=== PATIENT | male | born 2000 | race Caucasian/White ===

== ENCOUNTER 2021-06-18 15:55 | Emergency (ER) | payer SELFPAY ==
[~2021-06-18] VITALS: Ht 180.3 cm; Wt 104.8 kg
[2021-06-18 16:23] VITALS: BP 139/73
[2021-06-18] MEDS ORDERED: NACL 0.9% 1,000 ML IV ONE (16:30)
[2021-06-18] MEDS ORDERED: MORPHINE SULFATE 2 MG/ML SYR IVP ONE (16:30)
[2021-06-18] MEDS ORDERED: ONDANSETRON 4 MG/2 ML VIAL IVP ONE (16:30)
--- NOTE | 2021-06-18 16:45 | NUR ---
Pt moved to bed 6.
[2021-06-18 16:51] LABS: BASOPHILS % (AUTO) 0.2 % (0.0-2.0); EOSINOPHILS # (AUTO) 0.1 K/uL (0-0.4); EOSINOPHILS % (AUTO) 0.7 % (0.0-4.0); HEMATOCRIT 45.5 % (36-52); HEMOGLOBIN 15.7 g/dL (12.0-18.0); LYMPHOCYTES # (AUTO) 0.6 K/uL (2.0-11.5); LYMPHOCYTES % (AUTO) 7.7 % (20.5-51.1); MEAN CORPUSCULAR HEMOGLOBIN 31 pg (27-31); MEAN CORPUSCULAR HGB CONC 34 g/dL (33-37); MEAN CORPUSCULAR VOLUME 90.5 fL (80-94); MONOCYTES # (AUTO) 0.7 K/uL (0.8-1.0); MONOCYTES % (AUTO) 8.9 % (1.7-9.3); NEUTROPHILS # (AUTO) 6.3 K/uL (1.8-7.7); NEUTROPHILS % (AUTO) 82.5 % (42.2-75.2); PLATELET COUNT (AUTO) 188 K/uL (140-450); RED BLOOD CELL COUNT(AUTO) 5.03 MIL/uL (4.20-6.10); RED CELL DISTRIBUTION WIDTH 13.1 % (11.6-13.7); WHITE BLOOD COUNT (AUTO) 7.7 K/uL (4.8-10.8)
[2021-06-18 16:51] LABS: APPEARANCE,URINE CLEAR (CLEAR); BILIRUBIN,URINE NEGATIVE (NEGATIVE); BLOOD, URINE 3+ (NEGATIVE); COLOR,URINE DARK YELLOW (YELLOW); LEUKOCYTE ESTERASE ,URINE NEGATIVE (NEGATIVE); NITRITE, URINE NEGATIVE (NEGATIVE); UGLUCOSE NEGATIVE (NEGATIVE)
--- NOTE | 2021-06-18 17:02 | NUR ---
see complete assessment
[2021-06-18 17:06] LABS: ALBUMIN 4.5 g/dL (3.4-5.0); ANION GAP 13.3 (8-16); CARBON DIOXIDE 28.3 mmol/L (21-32); CREATININE 1.1 mg/dL (0.6-1.3); POTASSIUM 3.6 mmol/L (3.5-5.1); TOTAL BILIRUBIN 0.8 mg/dL (0.0-1.0)
[2021-06-18 17:57] LABS: WBC,URINE 0-5 /HPF (0-5)
--- NOTE | 2021-06-18 18:05 | NUR ---
Patient taken to CT scan via wheelchair by tech.
--- NOTE | 2021-06-18 18:19 | NUR ---
Eric returned from CT scan.
--- NOTE | 2021-06-18 19:14 | NUR ---
Pt report given to AN RN. Transfer of care at this time.
--- NOTE | 2021-06-18 19:15 | NUR ---
Received report from RAMON Moore for continuity of care.
--- NOTE | 2021-06-18 19:15 | NUR ---
Received report from RAMON Moore for continuity of care.
--- NOTE | 2021-06-18 20:01 | NUR ---
ULTRASOUND AT BEDSIDE
[2021-06-18] MEDS ORDERED: CYCL-711 PO (21:09)
[2021-06-18] MEDS ORDERED: KETO10TA2 PO (21:09)
--- NOTE | 2021-06-18 21:18 | NUR ---
IV removed, catheter intact and site benign. Applied folded 4x4 gauze and tape to stop bleeding.
[2021-06-18 21:27] VITALS: BP 106/60
--- NOTE | 2021-06-18 21:27 | NUR ---
Patient discharged with v/s stable. Written and verbal after care instructions given and explained. Patient verbalized understanding. Ambulatory with steady gait. ID band removed. All questions addressed prior to discharge. Advised to follow up with PMD.
== END 2021-06-18 21:27 | disposition home or self-care (01) ==
LOC: MED 15:55
DX: N39.0 Urinary tract infection, site not specified (principal); R10.11 Right upper quadrant pain
CPT/HCPCS: 36415; 74177; 76705; 80053; 81001; 83605; 85025; 87040; 87086; 96361; 96374; 96375; 99285; J2270; J2405; J7030; Q9967